=== PATIENT | male | born 1965 | race American Indian/Alaskan Native ===

== ENCOUNTER 2016-09-27 18:40 | Emergency (ER) | payer SELFPAY ==
[2016-09-27] MEDS ORDERED: MOTRIN ONE (20:16)
[2016-09-27] MEDS ORDERED: MOTRIN PO ONE (20:23)
[2016-09-27] MEDS ORDERED: FLEXERIL PO ONE (22:00)
--- NOTE | 2016-09-27 22:16 | Emergency Department Report ---
HPI - General Chief Complaint: Back Pain/Injury Time Seen by Provider: 09/27/16 21:56 - HPI HPI: 51-year-old male presents to ED complaining of low left-sided back pain for the past week she states he's had chronic low back pain for the past year and does not help that he is just involves heavy lifting. Patient states this past week history of some left-sided throbbing, aching, constant low left-sided back pain. He denies any pain or burning with urination or frequency or any abdominal pain, fever, nausea, vomiting. He also denies any injury or trauma to the back ED Past Medical Hx - Past Medical History Hx Diabetes: Yes - Surgical History Additional Surgical History: Back Surgery, Right Knee Surgery - Social History Smoking Status: Current Every Day Smoker Substance Use Type: None - Medications Home Medications: Home Medications Medication Instructions Recorded Confirmed Last Taken Type metFORMIN 750 mg PO BID 10/26/14 10/26/14 Unknown History metFORMIN [Glucophage] 500 mg PO BID #28 tablet 10/27/14 Unknown Rx Amoxicillin [Amoxicillin TAB] 875 mg PO BID #20 tablet 11/12/15 Unknown Rx glipiZIDE [Glucotrol] 5 mg PO BID #60 tablet 11/12/15 Unknown Rx Cyclobenzaprine [Flexeril] 10 mg PO QHS PRN #24 tablet 09/27/16 Unknown Rx Naproxen [Naprosyn] 500 mg PO BID #30 tablet 09/27/16 Unknown Rx ED Review of Systems ROS: Stated complaint: BACK PAIN Other details as noted in HPI Constitutional: denies: chills, fever Eyes: denies: eye pain, eye discharge, vision change ENT: denies: ear pain, throat pain Respiratory: denies: cough, shortness of breath, wheezing Cardiovascular: denies: chest pain, palpitations Endocrine: no symptoms reported Gastrointestinal: denies: abdominal pain, nausea, diarrhea Genitourinary: denies: urgency, dysuria Musculoskeletal: denies: back pain, joint swelling, arthralgia Skin: denies: rash, lesions Neurological: denies: headache, weakness, paresthesias Psychiatric: denies: anxiety, depression Hematological/Lymphatic: denies: easy bleeding, easy bruising Physical Exam - Physical Exam Vital Signs: Vital Signs 09/27/16 18:57 Temperature 98.2 F Pulse Rate 91 H Respiratory 16 Rate Blood Pressure 111/73 Blood Pressure 111/73 [Right] O2 Sat by Pulse 100 Oximetry Physical Exam: GENERAL: Alert and oriented x3, no apparent distress, Normal Gait, atraumatic. HEAD: Head is normocephalic and a-traumatic. NECK: Supple. Non edematous, No lymphadenopathy or thyromegaly. No C-spine tenderness LUNGS: Symetrical with respiration, No wheezing, no rales or crackles, CTAB. HEART: S1, S2 present, regular rate and rhythm without murmur, no rubs, no gallops. Non tender to palpation ABDOMEN: No organomegaly was noted,Positive bowel sounds, soft, and non- distended. . Nontender to palpation on all Quadrants, NO CVA tenderness. EXTREMITIES/MUSCULOSKELETAL: No cyanosis, clubbing, rash, lesions or edema. Full ROM bilaterally. UE/LE Pulses 2+ bilaterally. LE and UE 5+ strength bilaterally, straight leg raise negative bilaterally. Tenderness to palpation of the left lower latissimus dorsi muscle, no spinal tenderness. NEUROLOGIC: The patient is cooperative with no focal neurologic deficits. Normal speech. PSYCHIATRIC: Mood is congruent with affect, denies suicidal or homicidal ideations. SKIN: Warm and dry, No lesions, No ulceration or induration present. ED Course Vital Signs 09/27/16 18:57 Temperature 98.2 F Pulse Rate 91 H Respiratory 16 Rate Blood Pressure 111/73 Blood Pressure 111/73 [Right] O2 Sat by Pulse 100 Oximetry ED Medical Decision Making - Radiology Data Radiology results: report reviewed, image reviewed - Medical Decision Making 51-year-old male presents with low back myalgia ED course: Urinalysis ordered. Urinalysis shows no signs of infection. Patient received Motrin 800 and Flexeril and ED Discussed results with the patient. Discuss heat therapy 3 times a day to lower back. Discuss to follow up with primary care physician Vital signs are normal patient is in no acute distress patient had uneventful ED stay. Critical care attestation.: If time is entered above; I have spent that time in minutes in the direct care of this critically ill patient, excluding procedure time. ED Disposition Clinical Impression: Strain of muscle, fascia and tendon of lower back, initial encounter Disposition: TO HOME OR SELFCARE Is pt being admited?: No Does the pt Need Aspirin: No Condition: Stable Instructions: Muscle Strain (ED), Musculoskeletal Pain (ED), Trigger Point Pain (ED) Prescriptions: Cyclobenzaprine [Flexeril] 10 mg PO QHS PRN #24 tablet PRN Reason: Muscle Spasm Naproxen [Naprosyn] 500 mg PO BID #30 tablet Referrals: PRIMARY CARE,MD [Primary Care Provider] - 3-5 Days [facility] [Outside] - 3-5 Days [facility] [Outside] - 3-5 Days [facility] [Outside] - 3-5 Days Forms: Work/School Release Form(ED) Time of Disposition: 23:56
[2016-09-27 23:02] LABS: Bilirubin,Urine NEG (Negative); Blood,Urine NEG (Negative); Ketones,Urine NEG (Negative); Leukocyte Esterase,Urine NEG (Negative); Mucus,Urine FEW /HPF; Nitrite,Urine NEG (Negative); Protein,Urine <15 mg/dL mg/dL (Negative); Urobilinogen,Urine < 2.0 mg/dL (<2.0)
[2016-09-27 23:17] LABS: WBC,Urine < 1.0 /HPF (0.0-6.0)
[2016-09-28 01:58] VITALS: BP 110/56
== END 2016-09-28 01:59 | disposition home or self-care (01) ==
LOC: ED 18:40
DX: S33.5XXA Sprain of ligaments of lumbar spine, initial encounter (principal); E11.9 Type 2 diabetes mellitus without complications; F17.200 Nicotine dependence, unspecified, uncomplicated; X58.XXXA Exposure to other specified factors, initial encounter; Y93.9 Activity, unspecified; Y92.9 Unspecified place or not applicable; Y99.9 Unspecified external cause status
CPT/HCPCS: 81001; 99283

== ENCOUNTER 2017-07-13 19:40 | Emergency (ER) | payer OTHER ==
[2017-07-13 20:34] LABS: Hematocrit 43.1 % (35.5-45.6); Mean Corpuscular HGB Conc 35 % (32-34); Mean Corpuscular Hemoglobin 30 pg (28-32); Mean Corpuscular Volume 88 fl (84-94); Platelet Count 187 K/mm3 (140-440); Red Blood Count 4.92 M/mm3 (3.65-5.03); Red Cell Distribution Width 12.9 % (13.2-15.2)
[2017-07-13 20:48] LABS: BUN/Creatinine Ratio 14; Blood Urea Nitrogen 11 mg/dL (9-20); Calcium 8.4 mg/dL (8.4-10.2); Hemolysis Index 5
[2017-07-13 21:44] LABS: Eosinophils % (Manual) 0 % (0.0-4.3); Total Cells Counted 100
[2017-07-13 21:45] LABS: Platelet Estimate Consistent w Auto
[2017-07-13 21:54] LABS: Bilirubin,Urine NEG (Negative); Blood,Urine NEG (Negative); Color,Urine Yellow (Yellow); Mucus,Urine FEW /HPF; Protein,Urine <15 mg/dL mg/dL (Negative); Urobilinogen,Urine < 2.0 mg/dL (<2.0)
[2017-07-13 21:58] LABS: WBC,Urine < 1.0 /HPF (0.0-6.0)
[2017-07-14 04:00] VITALS: BP 124/81
[2017-07-14] MEDS ORDERED: NACL 0.9% 1000 ML 1,000 ML IV ONE (04:14)
[2017-07-14] MEDS ORDERED: HumuLIN R IV ONE (04:27)
[2017-07-14] MEDS ORDERED: HumuLIN R ONE (04:28)
--- NOTE | 2017-07-14 06:25 | Emergency Department Report ---
ED General Adult HPI - General Chief complaint: Hyperglycemia Stated complaint: WEAKNESS/HIGH SUGAR Time Seen by Provider: 07/14/17 06:17 Source: patient Mode of arrival: Ambulatory Limitations: No Limitations - History of Present Illness Initial comments: Patient is 52 years old male with history of type 2 diabetes on metformin 500 mg twice a day and glipizide 5 mg daily. Patient presented to the ER complaining of high blood sugar and generalized weakness thirsty and increased urination. Patient stated that he is out of his metformin and glipizide for more than a week now. Patient denied any headache chest pain, shortness of breath, nausea or vomiting. He denied any cough or burning sensation in the urine. Severity scale (0 -10): 0 - Related Data Home Medications Medication Instructions Recorded Confirmed Last Taken metFORMIN 750 mg PO BID 10/26/14 10/26/14 Unknown Previous Rx's Medication Instructions Recorded Last Taken Type metFORMIN [Glucophage] 500 mg PO BID #28 tablet 10/27/14 Unknown Rx Amoxicillin [Amoxicillin TAB] 875 mg PO BID #20 tablet 11/12/15 Unknown Rx glipiZIDE [Glucotrol] 5 mg PO BID #60 tablet 11/12/15 Unknown Rx Cyclobenzaprine [Flexeril] 10 mg PO QHS PRN #24 tablet 09/27/16 Unknown Rx Naproxen [Naprosyn] 500 mg PO BID #30 tablet 09/27/16 Unknown Rx glipiZIDE [Glipizide] 5 mg PO DAILY #30 tablet 07/14/17 Unknown Rx metFORMIN [Glucophage] 500 mg PO BID #60 tablet 07/14/17 Unknown Rx Allergies Allergy/AdvReac Type Severity Reaction Status Date / Time No Known Allergies Allergy Verified 09/27/16 19:02 ED Review of Systems ROS: Stated complaint: WEAKNESS/HIGH SUGAR Other details as noted in HPI Comment: All other systems reviewed and negative Constitutional: denies: chills, fever Respiratory: denies: cough, orthopnea, shortness of breath, SOB with exertion, SOB at rest, wheezing Cardiovascular: denies: chest pain, palpitations, dyspnea on exertion Gastrointestinal: denies: abdominal pain, nausea, vomiting, diarrhea, constipation, hematemesis, melena, hematochezia Genitourinary: frequency. denies: urgency, dysuria, hematuria, discharge, testicular pain, testicular mass Musculoskeletal: denies: back pain, joint swelling, arthralgia, myalgia Neurological: weakness (generalized). denies: headache, numbness, paresthesias , confusion, abnormal gait Psychiatric: denies: anxiety, depression, auditory hallucinations, visual hallucinations, homicidal thoughts, suicidal thoughts ED Past Medical Hx - Past Medical History Previous Medical History?: Yes Hx Diabetes: Yes Additional medical history: bleeding ulcer. hep C - Surgical History Past Surgical History?: Yes Additional Surgical History: Back Surgery, Right Knee Surgery - Social History Smoking Status: Current Every Day Smoker Substance Use Type: Alcohol - Medications Home Medications: Home Medications Medication Instructions Recorded Confirmed Last Taken Type metFORMIN 750 mg PO BID 10/26/14 10/26/14 Unknown History metFORMIN [Glucophage] 500 mg PO BID #28 tablet 10/27/14 Unknown Rx Amoxicillin [Amoxicillin TAB] 875 mg PO BID #20 tablet 11/12/15 Unknown Rx glipiZIDE [Glucotrol] 5 mg PO BID #60 tablet 11/12/15 Unknown Rx Cyclobenzaprine [Flexeril] 10 mg PO QHS PRN #24 tablet 09/27/16 Unknown Rx Naproxen [Naprosyn] 500 mg PO BID #30 tablet 09/27/16 Unknown Rx glipiZIDE [Glipizide] 5 mg PO DAILY #30 tablet 07/14/17 Unknown Rx metFORMIN [Glucophage] 500 mg PO BID #60 tablet 07/14/17 Unknown Rx ED Physical Exam - General Limitations: No Limitations General appearance: alert, in no apparent distress - Head Head exam: Present: atraumatic, normocephalic, normal inspection - Eye Eye exam: Present: normal appearance - ENT ENT exam: Present: normal exam, mucous membranes dry - Neck Neck exam: Present: normal inspection, full ROM. Absent: tenderness, meningismus, lymphadenopathy, thyromegaly - Respiratory Respiratory exam: Present: normal lung sounds bilaterally. Absent: respiratory distress, wheezes, rales, rhonchi, stridor, accessory muscle use, decreased breath sounds, prolonged expiratory - Cardiovascular Cardiovascular Exam: Present: regular rate, normal rhythm, normal heart sounds - GI/Abdominal GI/Abdominal exam: Present: soft, normal bowel sounds. Absent: distended, tenderness, guarding, rebound, rigid, organomegaly, mass, bruit, pulsatile mass , hernia - Extremities Exam Extremities exam: Present: normal inspection, full ROM, normal capillary refill - Back Exam Back exam: Present: normal inspection, full ROM. Absent: tenderness, CVA tenderness (R), CVA tenderness (L), muscle spasm, paraspinal tenderness, vertebral tenderness - Neurological Exam Neurological exam: Present: alert, oriented X3, CN II-XII intact, normal gait - Psychiatric Psychiatric exam: Present: normal mood - Skin Skin exam: Present: warm, intact, normal color ED Course Vital Signs 07/13/17 07/14/17 19:46 03:59 Temperature 98.2 F 98.5 F Pulse Rate 55 L 91 H Respiratory 18 16 Rate Blood Pressure 106/82 Blood Pressure 124/81 [Right] O2 Sat by Pulse 96 98 Oximetry ED Medical Decision Making - Lab Data Result diagrams: 07/13/17 20:20 07/13/17 20:20 - Medical Decision Making Patient stated that he is feeling much better his blood sugar now is 176. Patient received 1 L of normal saline and 4 units of regular insulin. We will refill his blood sugar medication and I advised him to follow up with a primary care physician in the next 2-3 days. I also advised him to return to the ER if his symptoms are not improving. Critical care attestation.: If time is entered above; I have spent that time in minutes in the direct care of this critically ill patient, excluding procedure time. ED Disposition Clinical Impression: Hyperglycemia due to type 2 diabetes mellitus Disposition: DC-01 TO HOME OR SELFCARE Is pt being admited?: No Condition: Stable Instructions: Diabetes Mellitus Type 2 in Adults (ED) Prescriptions: glipiZIDE [Glipizide] 5 mg PO DAILY #30 tablet metFORMIN [Glucophage] 500 mg PO BID #60 tablet Referrals: SHANNAN HOWARD MD [Staff Physician] - 3-5 Days Forms: Work/School Release Form(ED)
== END 2017-07-14 06:38 | disposition home or self-care (01) ==
LOC: ED 19:40
DX: E11.65 Type 2 diabetes mellitus with hyperglycemia (principal); F17.200 Nicotine dependence, unspecified, uncomplicated; Z79.84 Long term (current) use of oral hypoglycemic drugs; Z86.19 Personal history of other infectious and parasitic diseases
CPT/HCPCS: 36415; 80048; 81001; 82805; 82962; 85007; 85025; 96361; 96374; 99284; J7030; J1815